=== PATIENT | female | born 1975 | race Caucasian/White ===

== ENCOUNTER 2021-01-13 20:36 | Emergency (ER) | payer SELFPAY ==
[~2021-01-13] VITALS: Ht 170.2 cm; Wt 62.6 kg
[2021-01-13] MEDS ORDERED: SODIUM CHLORIDE 0.9% 1000ML 1,000 ML IV STA (20:39)
[2021-01-13] MEDS ORDERED: DIPHENHYDRAMINE HCL INJ 50 MG/ML VIAL IV ONE (20:45)
[2021-01-13] MEDS ORDERED: DEXAMETHASONE SOD PHOS 10 MG/1 ML VIAL IV ONE (20:45)
[2021-01-13] MEDS ORDERED: FAMOTIDINE 20 MG/2 ML VIAL IV ONE (20:45)
[2021-01-13] MEDS ORDERED: ONDANSETRON HCL INJ 2MG/ML 2ML 2 MG/ML VIAL IV ONE (20:45)
[2021-01-13] MEDS ORDERED: ACETAMINOPHEN 325 MG TAB PO ONE (20:45)
[2021-01-13] MEDS ORDERED: POTASSIUM CHLO20 ME1 PO (22:07)
[2021-01-13] MEDS ORDERED: LASIX40 MG PO (22:07)
[2021-01-13] MEDS ORDERED: SPIRONOLACTONE25 MG PO (22:07)
[2021-01-13 22:11] VITALS: BP 112/80
== END 2021-01-13 22:11 | disposition home or self-care (01) ==
LOC: FSED 20:41
DX: R18.8 Other ascites (principal); K74.60 Unspecified cirrhosis of liver; D64.9 Anemia, unspecified
CPT/HCPCS: 80053; 81003; 82270; 85025; 99283

== ENCOUNTER 2021-07-03 17:33 | Emergency (ER) | payer BC, OTHER ==
[~2021-07-03] VITALS: Ht 170.2 cm; Wt 70.3 kg
[~2021-07-03 17:33] MED LIST: LASIX40 MG PO; POTASSIUM CHLO20 ME1 PO; SPIRONOLACTONE25 MG PO
[2021-07-03 19:45] LABS: INFLUENZAE A&B ANTIGEN (RAPID) NEGATIVE (NEGATIVE); STREPTOCOCCUS GRP A ANTIGEN NEGATIVE (NEGATIVE)
[2021-07-03 20:34] LABS: BASOPHILS % 0.4 % (0.0-1.0); EOSINOPHILS # (AUTO) 0.2 (0.0-0.4); EOSINOPHILS % 2.7 % (0.0-6.0); HEMATOCRIT 38.6 % (34.2-44.1); HEMOGLOBIN 12.3 g/dL (12.0-16.0); LYMPHOCYTES # (AUTO) 2.3 (1.0-3.2); LYMPHOCYTES % 40.7 % (18.0-39.1); MEAN CORPUSCULAR HEMOGLOBIN 29.6 pg (28-32); MEAN CORPUSCULAR HGB CONC 31.9 g/dL (31-35); MONOCYTES % 17.7 % (4.4-11.3); NEUTROPHILS # (AUTO) 2.1 (2.1-6.9); NEUTROPHILS % 38.1 % (38.7-80.0); PLATELET COUNT 215 x10e3/uL (140-360); RED BLOOD COUNT 4.15 x10e6/uL (3.6-5.1); RED CELL DISTRIBUTION WIDTH 12.4 % (11.7-14.4)
[2021-07-03 20:55] LABS: ANION GAP 14.9 mmol/L (8-16); CREATININE, SERUM 0.84 mg/dL (0.57-1.11); POTASSIUM 3.9 mmol/L (3.5-5.1)
[2021-07-03] MEDS ORDERED: DOXYCYCLINE HY100 M3 PO (23:09)
[2021-07-04] MEDS ORDERED: IOPAMIDOL 370 MG/ML 200 ML INFUS..BTL INJ ONE (00:33)
[2021-07-04] MEDS ORDERED: SODIUM CHLORIDE 0.9% 50ML 50 ML ONE (00:34)
== END 2021-07-03 23:34 | disposition home or self-care (01) ==
LOC: ER 18:04
DX: K11.20 Sialoadenitis, unspecified (principal); K76.9 Liver disease, unspecified
CPT/HCPCS: 36415; 70491; 80048; 83518; 84702; 85025; 87040; 87070; 87400; 99284; Q9967